=== PATIENT | female | born 1985 | race Caucasian/White ===

== ENCOUNTER 2023-05-10 22:32 | Emergency (ER) | payer OTHER, SELFPAY ==
--- NOTE | ~2023-05-10 | CT_ITS ---
EXAMINATION: CT ABDOMEN AND PELVIS WITHOUT CONTRAST CLINICAL INFORMATION: Left flank pain, question stone COMPARISON: 05/07/2019 TECHNIQUE: Multidetector volumetric imaging was performed from the superior aspect of the liver through the pubic symphysis. Sagittal and coronal reformatted images were obtained on the technologist's workstation. This CT examination was performed using dose optimization techniques as appropriate, variously including the following: *Automated exposure control *Adjustment of mA and/or kV according to patient size (this includes techniques or standardized protocols for targeted exams where dose is matched to indication/reason for exam; i.e. extremities or head) *Use of iterative reconstruction technique DLP: 946 mGy-cm FINDINGS: LUNG BASES: The visualized lung bases are unremarkable. LIVER, GALLBLADDER, AND BILIARY TREE: The liver is normal in size, shape, and attenuation. No focal hepatic lesion or biliary ductal dilatation is identified on this noncontrast exam. Gallbladder appears contracted and is not well evaluated. PANCREAS: Unremarkable. SPLEEN: Unremarkable. ADRENAL GLANDS: Unremarkable. KIDNEYS AND URETERS: There is mild dilation of the left ureter without significant renal pelvic dilation. Left perinephric stranding is also noted. No ureteral calculus is seen, and this could reflect sequelae of a recently passed stone or ascending infection/pyelonephritis. There is a 4 mm left lower pole renal calculus. No right-sided calculus or hydronephrosis. BLADDER: Mildly distended and otherwise unremarkable. GASTROINTESTINAL TRACT: No evidence of bowel obstruction or significant wall thickening. The appendix is unremarkable. No free fluid or free air is seen. ABDOMINAL WALL: No significant hernia is appreciated. LYMPH NODES: Normal. VASCULAR: Unremarkable. PELVIC VISCERA: Unremarkable. OSSEOUS STRUCTURES: Unremarkable. CT/CT abdomen pelvis wo IV con IMPRESSION: 1. Mild dilation of the left ureter along with perinephric stranding. No ureteral calculus is seen, and this could reflect sequelae of a recently passed stone or ascending infection/pyelonephritis. 2. Left lower pole 4 mm renal calculus.
[2023-05-10 22:54] VITALS: BP 126/83; PULSE 89; RESP 14; TEMP 36.3; O2SAT 98; BMI 43.7
--- NOTE | 2023-05-11 01:33 | ED.FEMALEGU ---
HPI - Female Genitourinary General Chief complaint: Urogenital-Female Stated complaint: kidney stone? Time Seen by Provider: 05/11/23 01:33 Source: patient Mode of arrival: ambulatory Limitations: no limitations History of Present Illness HPI Narrative: Patient with history of kidney stones last kidney stone was about 2 years ago never had any procedure done for kidney stones comes here for frequency for last 2 days and left flank pain since early today no nausea no vomiting no fever patient is on her menstrual period Related Data Allergies Allergy/AdvReac Type Severity Reaction Status Date / Time No Known Allergies Allergy Unverified 12/29/19 16:54 Review of Systems Review of Systems: Yes all other systems are reviewed and are negative [facility] Past Medical History Medical History (Updated 05/11/23 @ 01:41 by Ned Walker MD) Kidney stone Physical Exam Vital Signs: Vital Signs: Last Vital Signs Temp 97.4 F 05/10/23 22:54 Pulse 89 05/10/23 22:54 Resp 14 05/10/23 22:54 BP 126/83 05/10/23 22:54 Pulse Ox 98 05/10/23 22:54 O2 Del Method Room Air 05/10/23 22:54 BMI result Body Mass Index 43.7 Appearance: Alert. Oriented X3. No acute distress. Eyes: No pallor ENT: Pharynx normal. Oral Mucosa moist Neck: Normal inspection. Neck supple. CVS: Normal heart rate and rhythm. Pulses normal. Respiratory: No respiratory distress. Equal air entry bilateral, no wheezing/rales/rhonchi Abdomen: Soft and nontender. Bowel sounds are present, no mass palpable, left CVA tenderness Skin: Skin warm and dry. Normal skin color. Normal skin turgor. Extremities: No lower extremity edema. No calf tenderness Neuro: Oriented X 3. Medical Decision Making Medical Decision Making MDM Narrative: Patient With history of kidney stone comes here with left flank pain with frequency likely has and another kidney stone will get a CT scan for further evaluation.. Patient is signed out pending CT scan Differential Diagnosis Differential Diagnoses: The differential diagnosis associated with the presentation includes UTI/kidney Discharge Plan Discharge Clinical Impression: Renal colic on left side Patient Disposition: Still a Patient
[2023-05-11 01:51] LABS: MANUAL DIFF FLAG NO
[2023-05-11 01:52] LABS: Basophils Percent Auto 0.2 % (0-2); Eosinophils Percent Auto 0.2 % (0-4); Hematocrit 39.7 % (37.0-47.0); Hemoglobin 12.9 g/dl (12.0-16.0); Imm Gran Abs Auto 0.04 X10*3/uL (0.00-0.03); Imm Gran Pct Auto 0.2 % (0.0-0.4); Lymphocytes Absolute Auto 1.3 X10*3/uL (1.2-4.9); Lymphocytes Percent Auto 7.6 % (20-40); Mean Corpuscular HGB Conc 32.5 g/dl (31.0-35.0); Mean Corpuscular Hemoglobin 27.9 pg (27.0-33.0); Mean Corpuscular Volume 85.7 fL (80.0-98.0); Mean Platelet Volume 10.4 fL (9.4-12.3); Monocytes Absolute Auto 0.8 X10*3/uL (0.1-1.2); Monocytes Percent Auto 4.9 % (2-11); Neutrophils Absolute Auto 14.3 x10*3/uL (2.0-8.3); Neutrophils Percent Auto 86.9 % (45-73); Platelet Count 272 X10*3/uL (160-400); Red Blood Count 4.63 X10*6/uL (4.20-5.50); Red Cell Distribution Width 13.7 % (11.0-16.0); White Blood Count 16.5 X10*3/uL (4.8-10.8)
[2023-05-11 02:14] LABS: Alanine Aminotransferase 15 U/L (0-31); Albumin Level 4.3 g/dL (3.5-5.0); Alkaline Phosphatase 61 U/L (39-117); Anion Gap 14 (12-20); Aspartate Amino Transferase 15 U/L (5-31); Bilirubin Total 0.2 mg/dL (0.0-1.0); Blood Urea Nitrogen 13 mg/dL (9-16); Calcium 9.3 mg/dL (8.4-10.2); Carbon Dioxide 24 mmol/L (22-29); Chloride 107 mmol/L (96-108); Creatinine Clr Calc Pharmacy 131.2; Estimated Glomerular Filt Rate > 60; Glucose Random 105 mg/dL (60-115); Sodium 141 mmol/L (135-145); Total Protein 7.5 g/dL (6.5-8.0)
[2023-05-11 02:19] LABS: HCG Quantitative < 2 mIU/mL
[2023-05-11] MEDS: Ketorolac Tromethamine 30 MG/ML VIAL IVPUSH (02:25)
[2023-05-11] MEDS: 0.9 % Sodium Chloride 1,000 ML 999 ML IV (02:25)
[2023-05-11 02:27] VITALS: BP 130/70; PULSE 85; RESP 16; TEMP 36.8; O2SAT 98
[2023-05-11 03:25] LABS: Appearance Urine Hazy; Color Urine Yellow; Glucose Urine UA Negative (Negative); Leukocyte Esterase Urine Small (1+) (Negative); Nitrite Urine Negative (Negative); PH 7.5 (5.0-9.0); UMIC TRIGGER UACC YES; Urine Blood Large (3+) (Negative); Urine Ketones Negative (Negative); Urine Protein Negative (Neg-Trace)
[2023-05-11 03:31] LABS: Bacteria Urine None Seen (None Seen); Hyaline Casts Urine 0-2 /LPF (0-2); RBC Urine >20 /HPF (0-2); Squamous Epithelial Cell Urine 0-2 /HPF (0-2); UACC Culture Trigger YES; WBC Urine >50 /HPF (0-5)
[2023-05-11] MEDS: Ketorolac Tromethamine 15 MG/ML VIAL IVPUSH (05:08)
[2023-05-11] MEDS: cefuroxime axetiL 250 MG TABLET PO (05:08)
--- NOTE | 2023-05-11 05:10 | PC.NURSE ---
pt medicated per jun. pt tolerated well with water.
[2023-05-11 05:25] VITALS: BP 111/69; PULSE 84; RESP 15; TEMP 36.4; O2SAT 98
== END 2023-05-11 05:27 | disposition home or self-care (01) ==
PROVIDERS: Internal Medicine; Emergency Provider Emergency Medicine Emergency Medical Services
DX: N23 Unspecified renal colic (principal); R35.0 Frequency of micturition; D72.829 Elevated white blood cell count, unspecified
CPT/HCPCS: 36415; 74176; 80053; 81001; 84702; 85025; 87086; 96361; 96374; 96376; 99284; 99285; J1885